=== PATIENT | male | born 1945 | race Caucasian/White ===

== ENCOUNTER → 2020-04-16 06:55 | Outpatient (CLI) | payer MEDICARE, OTHER, SELFPAY ==
--- NOTE | 2020-04-16 | DI.MRI.S_ITS ---
PROCEDURE: MR LUMBAR SPINE WO CON INDICATIONS: Radiculopathy, lumbar region TECHNIQUE: Noncontrast sagittal T1 spin echo and T2 fast echo, sagittal STIR, axial T1 and T2 fast spin echo through the lumbar spine. In cases with scoliosis, additional coronal T2 fast spin echo may be performed. COMPARISON: None. FINDINGS: Image quality: Excellent. Alignment and Curvature: There is trace L1-L2, L2-L3 and L4-L5 retrolisthesis. Approximately 7? of convex right lumbar spine curvature. Bone Marrow: Mild reactive endplate changes noted adjacent to the L1-L2, L2-L3, L3-L4, L4-L5 and L5-S1 discs. No acute vertebral body compression fractures. Spinal Cord: Conus medullaris terminates at the T12 level. Visualized cord demonstrates normal signal and size. Paraspinous Soft Tissues: No paravertebral masses. L1-L2: Loss of disc signal and height. Moderate, diffuse disc bulge. Small right central disc protrusion. Mild bilateral facet hypertrophy. Moderate to severe narrowing of the central canal. Moderate bilateral neural foraminal narrowing. No neural compression. L2-L3: Loss of disc signal and height. Moderate, diffuse disc bulge. Moderate facet and mild ligamentum flavum hypertrophy. Severe narrowing of the central canal with slight compression of the nerve roots of the cauda equina. Moderate bilateral neural foraminal narrowing. L3-L4: Loss of disc signal and mild loss of disc height. Mild right and moderate left facet hypertrophy. Mild ligamentum flavum hypertrophy. Severe narrowing of the central canal with slight compression of the nerve roots of the cauda equina. Moderate right and severe left neural foraminal narrowing with compression of the exiting left L3 nerve root L4-L5: Loss of disc signal and mild loss of disc height. Moderate, diffuse disc bulge. Mild bilateral facet hypertrophy. Moderate to severe narrowing of the central canal with crowding of the nerve roots of the cauda equina. Severe right and moderate left neural foraminal narrowing with compression of the exiting right L4 nerve root. L5-S1: Loss of disc signal and mild loss of disc height. Moderate, diffuse disc bulge. Mild bilateral facet hypertrophy. No central stenosis. Mild bilateral neural foraminal narrowing. No neural compression. IMPRESSION: 1. Multilevel degenerative disc disease. 2. Multilevel facet arthropathy. 3. 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 Moderate to severe L1-L2 and L4-L5 central canal narrowing with crowding of the nerve roots of the cauda equina. 4. Severe left L3-L4 neural foraminal narrowing with compression of the exiting left L3 nerve root. Severe right L4-L5 neural foraminal narrowing with compression of the exiting right L4 nerve root. Dictated by: Merlene Villa MD, PhD on 04/16/2020 at 11:16 Approved by: Merlene Villa MD, PhD on 04/16/2020 at 11:28
== END ==
PROVIDERS: PCP Family Medicine; Referring Provider Family Medicine; Visit Provider Family Medicine
DX: M51.16 Intervertebral disc disorders with radiculopathy, lumbar region (principal); M51.17 Intervertebral disc disorders with radiculopathy, lumbosacral region; M47.26 Other spondylosis with radiculopathy, lumbar region; M47.27 Other spondylosis with radiculopathy, lumbosacral region; M48.061 Spinal stenosis, lumbar region without neurogenic claudication; M48.07 Spinal stenosis, lumbosacral region
CPT/HCPCS: 72148